=== PATIENT | female | born 1965 | race Asian ===

== ENCOUNTER → 2018-08-30 | Outpatient (CLI) | payer BC | LOC: MC.RAD 08-04 15:20 | DX: Z12.31 Encounter for screening mammogram for malignant neoplasm of breast (principal) ==

== ENCOUNTER → 2019-07-28 | Outpatient (CLI) | payer BC | LOC: MC.RAD 13:15 | DX: Z12.31 Encounter for screening mammogram for malignant neoplasm of breast (principal) ==

== ENCOUNTER → 2021-04-23 | Outpatient (CLI) | payer BC | LOC: COL.RAD 07:45 | DX: R10.2 Pelvic and perineal pain (principal) ==

== ENCOUNTER 2021-07-11 08:04 | Day surgery (SDC) | payer BC ==
[~2021-07-11] VITALS: Ht 157.5 cm; Wt 57.3 kg
--- NOTE | 2021-07-11 08:15 | NUR ---
Patient ambulated back to bay #7 with her . Vitals obtained. Consent signed. Patient verbalized understanding. Height and robi obtained.
[2021-07-11 08:42] VITALS: BP 141/86; PULSE 74; TEMP 98.6
[2021-07-11 09:45] VITALS: BP 97/61; PULSE 68; TEMP 97.9
--- NOTE | 2021-07-11 09:45 | NUR ---
PATIENT BROUGHT BACK TO ENDO ROOM 7 VIA CART. AMBULATED TO CHAIR WITHOUT DIFFICULTY. GLORY RN AT BEDSIDE TO GIVE REPORT. VITAL SIGNS STABLE. AT BEDSIDE TO DRIVE PATIENT HOME. DENIES PAIN OR NAUSEA. WOULD LIKE APPLE JUICE AND MUFFIN. WARM BLANKET PROVIDED, CALL [facility] WITHIN REACH, WILL MONITOR. 1000- PATIENT TOLERATING FOOD AND DRINK WITHOUT DIFFICULTY. WILL CONTINUE TO MONITOR. DR. BLAIR AT BEDSIDE TO DISCUSS RESULTS.
[2021-07-11 10:00] VITALS: BP 116/70; PULSE 69
[2021-07-11 10:15] VITALS: BP 120/73; PULSE 54
--- NOTE | 2021-07-11 10:15 | NUR ---
PATIENT STATES SHE FEELS READY TO GO AT THIS TIME. IV REMOVED, INTACT. DISCHARGE INSTRUCTIONS REVIEWED WITH PATIENT AND FAMILY. ALL QUESTIONS ANSWERED. PATIENT TO GET DRESSED AT THIS TIME. 1025- PATIENT BROUGHT DOWN TO LOBBY VIA WHEEL CHAIR. TO DRIVE PATIENT HOME. ALL BELONGINGS IN HAND.
== END 2021-07-11 10:25 | disposition home or self-care (01) ==
LOC: SDCO 08:04
DX: Z12.11 Encounter for screening for malignant neoplasm of colon (principal); D12.2 Benign neoplasm of ascending colon; K63.5 Polyp of colon; M19.90 Unspecified osteoarthritis, unspecified site
CPT/HCPCS: J2704; J7030

== ENCOUNTER → 2022-07-07 | Outpatient (CLI) | payer BC | LOC: MC.RAD 13:15 | DX: Z12.31 Encounter for screening mammogram for malignant neoplasm of breast (principal); N64.9 Disorder of breast, unspecified ==

== ENCOUNTER → 2022-07-14 | Outpatient (CLI) | payer BC | LOC: MC.RAD 12:52 | DX: N63.20 Unspecified lump in the left breast, unspecified quadrant (principal) ==